=== PATIENT | male | born 1980 | race African-American/Black ===

== ENCOUNTER 2020-09-09 03:16 | Emergency (ER) | payer OTHER | END 2020-09-09 03:43 | disposition home or self-care (01) | LOC: ERS 03:16 | DX: F43.0 Acute stress reaction (principal); F41.9 Anxiety disorder, unspecified; E11.9 Type 2 diabetes mellitus without complications; I10 Essential (primary) hypertension; F17.200 Nicotine dependence, unspecified, uncomplicated | CPT/HCPCS: 99283 ==